=== PATIENT | female | born 1975 | race American Indian/Alaskan Native ===

== ENCOUNTER 2017-01-15 21:01 | Emergency (ER) | payer MEDICAID ==
[2017-01-15 21:13] VITALS: BP 134/78
[2017-01-15] MEDS ORDERED: Metoclopramide 10 MG/2 ML SDV IVPUSH SCH (21:30)
[2017-01-15] MEDS ORDERED: Metoclopramide 10 MG/2 ML SDV ONE (21:40)
--- NOTE | 2017-01-16 00:23 | ER ---
SOURCE: History take from the patient. The patient presented to emergency room today with complaint of sharp headache, bilateral temples going posteriorly bilaterally. HISTORY OF PRESENT ILLNESS: The patient has been sick for 1 day with bilateral temporal headaches very sharp in nature, tender to touch over her temples bilaterally. No associated fevers, but she did have some nausea and vomiting. No nystagmus or ataxia. No vertigo. No tinnitus. No rashes. No fevers. The patient had recently finished a high-dose steroid taper for back pain. She has recently had an increase in her gabapentin for neuropathy complaints. Recent lab work performed showed severe vitamin D deficiency. She has not been informed of this yet and was notified in her ER visit that her vitamin D was low and to start [id number] medication. REVIEW OF SYSTEMS: GENERAL: The patient denies any appetite decrease. No chills. EYES: She denies any halos or changes in vision. ENT: Denies any tinnitus, hearing loss, dizziness, vertigo, sore throat, swallowing issues, or sores in her mouth. CARDIOVASCULAR: Denies any chest pain, skipped beats, fast heart beats, shortness of breath, or pain. RESPIRATORY: Denies any wheezing, coughing, or dyspnea. GASTROINTESTINAL: Denies any crampy pain. No diarrhea. No constipation. No melena. She did have a couple of episodes of nausea and vomiting today, last one being about an hour before presenting to the ER. GENITOURINARY: Denies any dysuria, frequency, or nocturia. ENDOCRINE: No flushing. No history of thyroid disease or adrenal disease. MUSCULOSKELETAL: She does have a history of chronic back pain and she has a history of neuropathy in her lower extremities. PSYCHIATRIC: History of some anxiety. HEMATOLOGIC: No history of blood abnormalities. IMMUNOLOGIC: No known autoimmune disease. 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 PHYSICAL EXAMINATION: VITAL SIGNS: Upon admission show a blood pressure 134/78, pulse of 90, saturations on room air is 100%. CONSTITUTIONAL: A well-developed, well-nourished female, alert and oriented x3. Crying, seems to be in some mild distress. HEAD: Normocephalic without trauma. No pain with palpating over the sinus. She does have discomfort palpating over her temporal vessels bilaterally. No lesions were noted on her nose or her scalp. EYES: Show EOMI, PERRLA. No nystagmus. Conjunctivae and lids were normal. EARS, NOSE, AND THROAT : Clear. Normal TMs. Throat clear. NECK: Supple. No bruits, no thyromegaly. Trachea is midline. PULMONARY: Lungs are clear. No wheezing. CARDIOVASCULAR: Regular rate and rhythm. No murmurs, rubs, or gallops. No S3, no S4. ABDOMEN: Soft. No organomegaly. Bowel sounds x4. No mass, no rebound. BACK: Shows no CVA or cord tenderness. Her gait was normal upon presentation. LYMPHATICS: No palpable lymphadenopathy. SKIN: No rashes or sores. NEUROLOGIC: No focal deficits noted. Cranial nerves II through XII intact. PSYCHIATRIC: The patient has appropriate judgment and insight. Mental status is intact. Her behavior is appropriate except that she does have some crying due to her pain; however, the crying is well-controlled. ASSESSMENT: 1. Migraine headache. 2. Severe vitamin D deficiency. 3. History of renal agenesis. 4. History of neuropathy. 5. History of chronic low back pain. PLAN: The patient was given Reglan 5 mg IV in the ER with good results. The patient no longer nauseous, no longer has headache. Appetite has returned and wants to eat. She is no longer crying. Labs were performed in the ER, sedimentation rate was normal, to make sure there is no temporal arteritis present. CBC and CMP were unimpressive. I will start over- the-counter vitamin D replacement. We will check her levels in 30 days to make sure it is coming up and we may have to put her on a prescription strength vitamin D should she not respond to [id number] medication. CHACE/ORTIZ /[id number]
== END 2017-01-15 22:45 | disposition home or self-care (01) ==
LOC: LB.ED 21:01
DX: G43.909 Migraine, unspecified, not intractable, without status migrainosus (principal); E55.9 Vitamin D deficiency, unspecified; Z88.8 Allergy status to other drugs, medicaments and biological substances
CPT/HCPCS: 36415; 80053; 85025; 85651; 96374; 99284; J2765

== ENCOUNTER 2017-10-01 12:15 | Emergency (ER) | payer MEDICAID ==
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
[2017-10-01] MEDS ORDERED: Nitroglycerin 0.4 MG Tab.SL SL PRN (12:43)
[2017-10-01 14:00] VITALS: BP 112/82
[2017-10-01] MEDS ORDERED: Ketorolac 30 MG/ML SDV IM ONE (14:47)
[2017-10-01] MEDS ORDERED: Ketorolac 30 MG/ML SDV ONE (14:53)
== END 2017-10-01 15:15 | disposition home or self-care (01) ==
LOC: LB.ED 12:15 → SUPCPDRO 12:15 → LB.ED 15:15
DX: R07.9 Chest pain, unspecified (principal); R41.9 Unspecified symptoms and signs involving cognitive functions and awareness; F32.9 Major depressive disorder, single episode, unspecified; Z79.899 Other long term (current) drug therapy
CPT/HCPCS: 36415; 80053; 81001; 84443; 84484; 85025; 93005; 96372; 99285; J1885

== ENCOUNTER → 2019-08-05 | Outpatient (CLI) | payer MEDICAID ==
--- NOTE | 2019-08-10 12:31 | US ---
Date of Service: 08/05/19 Clinical Data: Unspecified lump in the right breast, unspecified quadrant RIGHT BREAST ULTRASOUND: A targeted exam was performed. There is a 10 mm oval-shaped hypoechoic lesion at the 11 o'clock position 2 cm from the nipple. It does correlate with the patient's palpable abnormality. It does contain some internal echoes. Its margins are slightly irregular. It does not have sonographic characteristics of a benign simple cyst. Aspiration or biopsy should be considered. No other abnormalities. ACR 4 - Suspicious Ultrasound. [id number] [facility]
== END ==
LOC: LB.US 10:27
PROVIDERS: ATTEND Nurse Practitioner Family
DX: N63.22 Unspecified lump in the left breast, upper inner quadrant (principal)
CPT/HCPCS: 76641-RT

== ENCOUNTER 2024-09-26 16:29 | Emergency (ER) | payer OTHER, BC ==
[2024-09-26 16:49] VITALS: PULSE 65
[2024-09-26 17:28] VITALS: BP 139/90
== END 2024-09-26 17:37 | disposition home or self-care (01) ==
LOC: LB.ED 16:29
DX: S61.214A Laceration without foreign body of right ring finger without damage to nail, initial encounter (principal); W26.0XXA Contact with knife, initial encounter; Y99.0 Civilian activity done for income or pay
CPT/HCPCS: 12001; 99282